=== PATIENT | female | born 1950 | race Caucasian/White ===

== ENCOUNTER 2024-11-09 09:38 | Emergency (ER) | payer OTHER, MEDICAID ==
[~2024-11-09] VITALS: Ht 162.5 cm; Wt 88.5 kg
[~2024-11-09 09:38] MED LIST: LISINOPRIL5 MG PO; MECLIZINE HCL25 M2 PO; NAPROXEN250 MG PO; OMEPRAZOLE40 MG PO; PRILOSEC20 M1 PO; Synthroid,Levo25 MCG PO; VICODIN ES 7501 TAB PO
[2024-11-09 10:02] LABS: BASO # 0.0 10*3/uL (0.0-0.1); BASO % 0.7 % (0.0-1.0); EOS # 0.1 10*3/uL (0.0-0.4); EOS % 1.7 % (1.0-4.0); MEAN CELL VOLUME 95.3 fl (81.0-99.0); MEAN CORPUSCULAR HGB 31.4 pg (27.0-31.0); MEAN PLATELET VOLUME 9.7 fl (9.6-12.3); MONO # 0.5 10*3/uL (0.1-1.0); MONO % 8.7 % (3.0-9.0); NEUT # 2.8 10*3/uL (2.3-7.9); NEUT % 48.3 % (47.0-73.0); NUCLEATED RED BLOOD CELL 0.0 % (0.0-0.0); NUCLEATED RED BLOOD CELL 0.0 10*3/uL (0.0-0.0); PLATELET COUNT AUTOMATED 270 10*3/uL (130-400); RED CELL DISTRI WIDTH 11.4 % (0-14.5)
[2024-11-09 10:26] LABS: BUN 10 mg/dl (9-23)
[2024-11-09] MEDS ORDERED: POTASSIUM CHLORIDE 20 MEQ TAB PO ONE (12:20)
== END 2024-11-09 12:40 | disposition home or self-care (01) ==
LOC: ED 09:38
PROVIDERS: Internal Medicine
DX: I16.0 Hypertensive urgency (principal); E87.6 Hypokalemia; M19.90 Unspecified osteoarthritis, unspecified site; Z91.199 Patient's noncompliance with other medical treatment and regimen due to unspecified reason; Z88.5 Allergy status to narcotic agent; Z87.891 Personal history of nicotine dependence